=== PATIENT | male | born 1955 | race Hispanic/Latino ===

== ENCOUNTER 2024-04-05 09:08 | Day surgery (SDC) | payer MEDICARE ==
[~2024-04-05 09:08] MED LIST: ALBU2.5V2 IH; ATOR40TA71 PO; Calcitonin,Salmon,Synthetic NS; ERGO500093 PO; FOLI1 PO; LACT PO; METO25 PO; NAPR-1023 PO; ONDA-243 PO; PYRI25TA3 PO; doCUSate SODIUM 100 MG CAP PO
[2024-04-05 09:51] LABS: BASOPHILS # (AUTO) 0.05 K/uL (0.00-0.20); BASOPHILS % (AUTO) 0.6 % (0.0-5.0); EOSINOPHILS % (AUTO) 3.7 % (0.0-8.0); HEMATOCRIT 33.5 % (42-54); IMMATURE GRANULOCYTE ABSOLUTE 0.03 K/uL (0-1); LYMPHOCYTES % (AUTO) 12.6 % (21.0-51.0); MEAN CORPUSCULAR HEMOGLOBIN 22.7 pg (27.0-33.0); MEAN CORPUSCULAR HGB CONC 28.7 g/dL (32.0-36.0); MEAN CORPUSCULAR VOLUME 79.2 fL (79-99); MONOCYTES # (AUTO) 0.7 K/uL (0.1-1.0); MONOCYTES % (AUTO) 8.2 % (3.0-13.0); NEUTROPHILS % (AUTO) 74.5 % (40.0-77.0); PLATELET COUNT (AUTO) 303 K/uL (130-400); RED BLOOD CELL COUNT(AUTO) 4.23 MIL/uL (4.50-6.20); RED CELL DISTRIBUTION WIDTH 16.5 % (11.0-15.5)
[2024-04-05 10:02] LABS: ALBUMIN 2.7 g/dL (3.5-5.0); CREATININE 0.7 mg/dL (0.5-1.3)
[2024-04-05 10:05] LABS: BILIRUBIN,TOTAL 0.4 mg/dL (0.2-1.0); TOTAL PROTEIN, SERUM 7.4 g/dL (6.0-8.3)
[2024-04-05 10:07] LABS: INR 1.16 (0.85-1.15); PROTHROMBIN TIME 12.4 SEC (9.6-11.6)
[2024-04-05 10:08] LABS: PARTIAL THROMBOPLASTIN TIME 30.8 SEC (26.3-35.5)
[2024-04-05] MEDS ORDERED: FENTanyl CITRate PF 50 MCG/1 ML 2ML VIAL ONE (10:35)
[2024-04-05 11:37] VITALS: BP 129/66; PULSE 81; RESP 15; TEMP 97.4
--- NOTE | 2024-04-05 11:37 | NUR ---
PT ARRIVED BACK IN DAY PT #3 NAD VSS DRESSING TO LEFT AXILLA DRY INTACT. NO BLEEDING NOTED SIN AROUND PUNCTURE SITE ASYMPTOMATIC.
--- NOTE | 2024-04-05 11:37 | HMCIMG ---
CT BX LUNG/MEDIASTINUM NDL IR HISTORY: Left lung mass COMPARISON: None TECHNIQUE: Informed consent was obtained. Risks and benefits were explained to the patient. A timeout was performed. Patient was prepped and draped in a sterile fashion. Local anesthetics was given as required. Under CT guidance, left lung mass was localized. CT guidance left lung mass biopsy was performed with 20-gauge biopsy gun with coaxial arrangement. FINDINGS: 5 core biopsy specimens were obtained. Patient tolerated procedure without complication. Patient left the department in good condition. IMPRESSION: 1. Uncomplicated CT guidance left lung mass core biopsy.
--- NOTE | 2024-04-05 11:40 | NUR ---
CT GD LT LUNG NODULE BX TOLERATED PROCEDURE. PROCEDURE PERFORMED BY DR Hannah CORMIER. PUNCTURE SITE TO LT UPPER BACK. X4 SPECIMEN REMOVED AND SENT TO LAB. END OF PROCEDURE AT 1120. NO SEDATION GIVEN. DRESSING DRY AND INTACT. NO BLEEDING NOTED. REPORT GIVEN TO Sawyer GOSS RN. TRANSPORTED TO DAY PT BED 3. DENIES PAIN. A&O.
[2024-04-05 12:00] VITALS: BP 124/66; PULSE 79; RESP 15
--- NOTE | 2024-04-05 12:24 | HMCIMG ---
CHEST 1VW HISTORY: Post left lung biopsy COMPARISON: 03/10/2024 FINDINGS: A frontal projection of the chest was obtained. Left upper lung mass density is again seen unchanged. No pneumothorax is seen. The heart is borderline enlarged. Generative changes are seen. No evidence of aortic calcification is seen. IMPRESSION: 1. Left lung mass density is again seen. No pneumothorax is seen.
[2024-04-05 12:30] VITALS: BP 129/66; PULSE 76; RESP 14
[2024-04-05 13:00] VITALS: BP 119/58; PULSE 81; RESP 15
[2024-04-05 13:30] VITALS: BP 106/58; PULSE 88; RESP 15; TEMP 97.4
[2024-04-05 14:00] VITALS: BP 128/57; PULSE 81; RESP 14
--- NOTE | 2024-04-05 14:05 | NUR ---
PT AND DAUGHTER GIVEN VERBAL AND WRITTEN DISCHARGE INSTRUCTIONS. IV REMOVED SITE ASYMPTOMATIC. DR. CORMIER REVIEWED BOTH CXR AND CLEARED PT FOR DISCHARGE.
--- NOTE | 2024-04-05 14:12 | HMCIMG ---
CHEST 1VW HISTORY: Post left lung biopsy COMPARISON: Same day x-ray FINDINGS: A frontal projection of the chest was obtained. Mild bilateral pulmonary infiltrates are seen in the left lung mass unchanged. No pneumothorax is seen. The heart is borderline enlarged. All the lines and tubes are again seen in place. No evidence of aortic calcification is seen. IMPRESSION: 1. Mild bilateral pulmonary infiltrates are seen in the left lung mass unchanged. No pneumothorax is seen.
== END 2024-04-05 14:20 | disposition home or self-care (01) ==
LOC: RAH 09:08 → DAH 09:15 → EDSTATUS 10:00 → RAH 14:20
PROVIDERS: ATTEND Internal Medicine Hematology & Oncology
DX: R91.8 Other nonspecific abnormal finding of lung field (principal); E11.9 Type 2 diabetes mellitus without complications; M19.90 Unspecified osteoarthritis, unspecified site; E78.5 Hyperlipidemia, unspecified; I48.91 Unspecified atrial fibrillation; Z86.73 Personal history of transient ischemic attack (TIA), and cerebral infarction without residual deficits; F17.210 Nicotine dependence, cigarettes, uncomplicated; Z79.01 Long term (current) use of anticoagulants; Z79.899 Other long term (current) drug therapy
CPT/HCPCS: 32408; 80053; 85025; 85610; 85730; 36415; 88305; 71045 ×2; A4215; A4222; A4221; A4663; A4216; A4606; A4223 ×3; 32405; 77012; J3010